=== PATIENT | female | born 1950 | race Caucasian/White ===

== ENCOUNTER 2017-02-22 11:56 | Emergency (ER) | payer MEDICARE, OTHER ==
[~2017-02-22] VITALS: Ht 165.1 cm; Wt 79.0 kg
[2017-02-22 14:43] LABS: MEAN CORPUSCULAR HGB CONC 32.8 g/dl (32.0-36.5); MEAN CORPUSCULAR VOLUME 88.5 fl (80.0-96.0); PLATELET COUNT, AUTOMATED 150 10^3/uL (150-450); RED CELL DISTRIBUTION WIDTH 14.3 % (11.5-14.5); WHITE BLOOD COUNT 5.2 10^3/uL (4.0-10.0)
[2017-02-22 14:44] LABS: ADD MANUAL DIFFER YES; DIFF SLIDE NUMBER 225; POSITIVE MORPH POS FLAG
[2017-02-22 15:11] LABS: BASOPHILS 1 % (0-4); EOSINOPHILS 2 % (0-5)
[2017-02-22 15:12] LABS: ANISOCYTOSIS 1+; CALCIUM LEVEL 8.4 MG/DL (8.8-10.2); CREATININE FOR GFR 1.03 MG/DL (0.55-1.02); GLOMERULAR FILTRATION RATE 56.7 (>45); POTASSIUM SERUM 3.7 MEQ/L (3.5-5.1)
--- NOTE | 2017-02-22 15:40 | REP ---
CHEST, TWO VIEWS: No comparison. There is no evidence of acute infiltrate. No pleural effusion is seen. The heart is normal in size. The mediastinal silhouette is unremarkable. The visualized osseous structures are intact. IMPRESSION: No acute pulmonary disease. Signed by Ellis Sandoval MD 02/22/2017 04:37 P
[2017-02-22] MEDS ORDERED: AMOX500C PO (15:52)
[2017-02-22 15:59] VITALS: BP 135/68
[2017-02-22] MEDS ORDERED: TESS100C PO (16:06)
== END 2017-02-22 16:12 | disposition home or self-care (01) ==
LOC: M ED 11:56
DX: R05 Cough (principal)

== ENCOUNTER 2017-03-03 09:37 | Emergency (ER) | payer MEDICARE, OTHER ==
[~2017-03-03] VITALS: Ht 165.1 cm; Wt 77.3 kg
[~2017-03-03 09:37] MED LIST: AMOX500C PO; TESS100C PO
[2017-03-03] MEDS ORDERED: ISOVUE-370 76% 100ML VIAL (Q9967) As Ordered ONE (11:44)
[2017-03-03 12:18] LABS: MEAN CORPUSCULAR HEMOGLOBIN 28.5 pg (27.0-33.0); MEAN CORPUSCULAR HGB CONC 32.2 g/dl (32.0-36.5); MEAN CORPUSCULAR VOLUME 88.3 fl (80.0-96.0); PLATELET COUNT, AUTOMATED 182 10^3/uL (150-450); RED CELL DISTRIBUTION WIDTH 15.4 % (11.5-14.5); WHITE BLOOD COUNT 7.3 10^3/uL (4.0-10.0)
[2017-03-03 12:32] LABS: INR 1.05
[2017-03-03 12:46] LABS: CALCIUM LEVEL 7.8 MG/DL (8.8-10.2); CREATININE FOR GFR 1.02 MG/DL (0.55-1.02); GLOMERULAR FILTRATION RATE 57.4 (>45); POTASSIUM SERUM 3.5 MEQ/L (3.5-5.1)
[2017-03-03 12:55] LABS: ADD MANUAL DIFFER YES; DIFF SLIDE NUMBER 219; POSITIVE MORPH POS FLAG
[2017-03-03] MEDS ORDERED: MUCI600T37 PO (14:02)
[2017-03-03] MEDS ORDERED: ELIQ5TAB PO ×2 (14:02→14:24)
[2017-03-03] MEDS ORDERED: TUSS1CAP5 PO (14:02)
[2017-03-03] MEDS ORDERED: APIXABAN 5 MG TAB (ELIQUIS) PO ONE (14:15)
[2017-03-03 14:27] VITALS: BP 105/66
[2017-03-03] MEDS ORDERED: DIFL150T PO (14:28)
--- NOTE | 2017-03-03 15:02 | REP ---
Emergency left lower extremity duplex venous ultrasound: History: Left calf pain and swelling. Prior history of DVT in 1989. Findings: Incidental note is made of an apparent triplication of the left popliteal vein. This may reflect collateral veins from the remote history of DVT. In any event, the popliteal veins are anechoic and compressible and normal by Doppler. There is, however, evidence of nonocclusive DVT affecting the common femoral vein, proximal femoral vein, and proximal greater saphenous vein in the upper thigh and groin on the left side. There is incomplete compressibility and incomplete color Doppler filling of these vein segments. Impression: The study is positive for nonocclusive deep vein thrombosis involving the proximal femoral vein and the common femoral vein. There is also nonocclusive venous thrombosis involving the proximal greater saphenous vein. Signed by Reed Segundo MD 03/04/2017 07:36 A
--- NOTE | 2017-03-03 19:15 | REP ---
CT pulmonary angiogram: With IV contrast. History: Shortness of breath and cough. DVT . Comparison studies: Comparison chest x-ray February 22, 2017. Contrast dose: 75 cc's of Isovue [address] technique: Helical scanning is acquired and overlapping 1.5 mm and contiguous 3 mm axial images are reformatted. In addition, a 3-D work station is deployed to generate thick slab maximum intensity projection images in sagittal and coronal imaging projections. CT pulmonary angiographic findings: There is good opacification of the pulmonary arterial tree and there is no CT evidence of pulmonary embolism. Thoracic aorta is normal in coarse, caliber and contour. It enhances homogeneously. Maximum intensity projection images show no filling defects or vessel cutoff. There is no evidence of pleural or pericardial effusion. No hilar or mediastinal mass or adenopathy is observed. There is a small sliding-type hiatal hernia. No adrenal lesion is seen. Incidental note is made of a surgically absent left kidney with clips in the left periaortic region. The left adrenal gland is normal in appearance. In addition, the right renal artery is abnormal in a pattern highly suspicious for fibromuscular hyperplasia with a beaded irregular appearance. Lastly, there is an aneurysm involving the splenic artery, which measures 1.9 cm in greatest diameter. The visualized upper abdominal structures are unremarkable. There is a band of linear plate-like atelectasis in the right lower lobe. Lung carey are otherwise clear. No other significant finding. Impression: 1. No CT evidence of pulmonary embolism. 2. There is a band of linear discoid atelectasis in the right lower lobe. No other significant finding. 3. Status post left nephrectomy. 4. Fibromuscular hyperplasia right renal artery. 5. 1.9 cm splenic artery aneurysm. Signed by Reed Segundo MD 03/04/2017 07:40 A
--- NOTE | 2017-03-04 07:27 | ECGEPIP ---
Stationary ECG Study [facility] - ED Test Date: 2017-03-03 Pat Name: LUISANA GALLO Department: Room: - Gender: F Manager Clinic: [facility] : 1950 Requested By: MARIA EUGENIA RIVERA Order Number: [id number] Reading MD: Errol Quinn Measurements Intervals [place] Rate: 74 P: 40 OK: 173 QRS: 12 QRSD: 90 T: 38 QT: 379 QTc: 421 Interpretive Statements SINUS RHYTHM NO PRIORS FOR COMPARISON Electronically Signed On 03-04-2017 7:27:37 EST by Errol Quinn
[2017-03-05 09:42] LABS: CARCINOEMBRYONIC ANTIGEN < 0.5 NG/ML (<2.5)
[2017-03-05 10:22] LABS: CA 125 51.6 U/ML (<30.2)
== END 2017-03-03 14:30 | disposition home or self-care (01) ==
LOC: M ED 09:37
DX: R05 Cough (principal); I82.402 Acute embolism and thrombosis of unspecified deep veins of left lower extremity; Z87.19 Personal history of other diseases of the digestive system; Z88.1 Allergy status to other antibiotic agents; Z88.5 Allergy status to narcotic agent
CPT/HCPCS: 36415; 71275; 80048; 81240; 81241; 82378; 82550; 82553; 83880; 84311; 84484; 85025; 85300; 85301; 85303; 85305; 85610; 85730; 86147; 86304; 93005; 93971; 99284; Q9967

== ENCOUNTER 2017-03-29 10:12 | Emergency (ER) | payer MEDICARE ==
[~2017-03-29] VITALS: Ht 165.1 cm; Wt 76.8 kg
[2017-03-29 10:12] VITALS: BP 128/72
[~2017-03-29 10:12] MED LIST changes: +DIFL150T PO; +ELIQ5TAB PO; +MUCI600T37 PO; +TUSS1CAP5 PO
[2017-03-29] MEDS ORDERED: ELIQ5TAB PO (11:31)
== END 2017-03-29 11:35 | disposition home or self-care (01) ==
LOC: M ED 10:12
DX: Z76.0 Encounter for issue of repeat prescription (principal); I82.402 Acute embolism and thrombosis of unspecified deep veins of left lower extremity; D80.1 Nonfamilial hypogammaglobulinemia; Z90.5 Acquired absence of kidney; Z88.5 Allergy status to narcotic agent; Z88.1 Allergy status to other antibiotic agents; Z79.01 Long term (current) use of anticoagulants

== ENCOUNTER 2017-04-29 09:34 | Emergency (ER) | payer MEDICARE | END 2017-04-29 10:25 | disposition home or self-care (01) | LOC: M ED 09:34 | DX: Z76.0 Encounter for issue of repeat prescription (principal); Z79.01 Long term (current) use of anticoagulants; Z88.5 Allergy status to narcotic agent; Z88.1 Allergy status to other antibiotic agents | CPT/HCPCS: 99282 ==